=== PATIENT | male | born 1960 | race Caucasian/White ===

== ENCOUNTER 2017-08-25 05:58 | Inpatient (IN) | payer OTHER ==
[2017-08-25] MEDS ORDERED: ceFAZolin SODIUM 1 GM VIAL IV PRN (06:00)
[2017-08-25] MEDS ORDERED: RINGER'S SOLUTION,LACTATED 1,000 ML IV PRN (06:00)
[2017-08-25] MEDS ORDERED: MORPHINE SULFATE 15 MG TABLET.SA PO PRN (06:00)
[2017-08-25] MEDS ORDERED: ROPIVACAINE HCL/PF 100 MG, EPINEPHrine 0.2 MG, KETOROLAC TROMETHAMINE 30 MG in NORMAL S... IJ PRN (06:00)
[2017-08-25] MEDS ORDERED: TRANEXAMIC ACID 1,000 MG in NORMAL SALINE 100 ML IV PRN (06:00)
[2017-08-25] MEDS ORDERED: RINGER'S SOLUTION,LACTATED 1,000 ML IV ONE ×2 (07:40→08:15)
[2017-08-25] MEDS ORDERED: MAGNESIUM HYDROXIDE 30 ML UDC PO PRN (09:44)
[2017-08-25] MEDS ORDERED: HYDROmorphone HCL 1 MG/ML DISP.SYRIN IV PRN (09:44)
[2017-08-25] MEDS ORDERED: ZOLPIDEM TARTRATE 5 MG TABLET PO PRN (09:44)
[2017-08-25] MEDS ORDERED: MAG HYDROX/ALUMINUM HYD/SIMETH 30 ML UDC PO PRN (09:44)
[2017-08-25] MEDS ORDERED: diphenhydrAMINE HCL 50 MG/ML VIAL IV PRN (09:44)
[2017-08-25] MEDS ORDERED: PROMETHAZINE HCL 5 MG in DEXTROSE 5 % IN WATER 50 ML IV PRN ×2 (09:44)
[2017-08-25] MEDS ORDERED: ACETAMINOPHEN 500 MG TABLET PO PRN (09:44)
[2017-08-25] MEDS ORDERED: oxyCODONE HCL/ACETAMINOPHEN 1 TAB TABLET PO PRN (09:44)
[2017-08-25] MEDS ORDERED: ONDANSETRON HCL/PF 2 MG/ML VIAL IV PRN (09:44)
[2017-08-25] MEDS ORDERED: TADALAFIL 20 MG TABLET PO PRN (09:46)
--- NOTE | 2017-08-25 09:48 | POSTOP NO ---
Date of Surgery: 08/25/17 Anesthesia: Spinal, regional, local Patient Tolerated the Procedure: Well Post Operative Diagnosis/Procedures: Component Assembler Supervisor: Wilfred Cid PA-C Post-operative Diagnosis: Left knee degenerative joint disease Finding: Above Procedure: Left total knee arthroplasty Estimated Blood Loss: Minimal Specimens: Bone for disposal
--- NOTE | 2017-08-25 09:49 | OR ---
Operative Report - Dictated Report Narrative: Date: 08/25/2017 Preoperative diagnosis: Left Knee degenerative joint disease. Postoperative diagnosis: Left Knee degenerative joint disease. Procedure: Left Total knee arthroplasty. Surgeon: Ronnie Villa M.D. Director Athletic: Wilfred Cid PA-C Anesthesia: Spinal with regional block and local periarticular joint injection. Complications: None Specimens: Bone for disposal. Estimated blood loss: Minimal. Tourniquet time: 75 Minutes at 325 millimeters of mercury. Retained implants: Depuy Attune size 6 left lugged cemented posterior stabilized femoral component. Size 6 fixed-bearing cemented tibial platform. 6 by 6 millimeter posterior stabilized cross-linked tibial insert. 38 millimeter medialized patella button. Indications: Mr. Randle is a 56-year-old gentleman who has had long-standing left knee pain and arthrosis. This patient was followed in my clinic for period of time with significant complaints of left knee pain consistent with arthritic changes. He had failed conservative measures including, but not limited to, activity modification, passage of time, medications, and other conservative measures. Patient wished to proceed with surgical treatment. The risks, benefits, and alternatives were discussed in clinic. The risks of , blood clots, bleeding, infection, nerve/tendon blood vessel/ injury, malposition of components, intraoperative fracture, postoperative limited range of motion, persistent pain, failure of components, and need for additional procedures. Patient wished to proceed consent was obtained after answering all questions. Procedure: After marking the correct extremity on the floor, the patient was taken to the operating room. A timeout was performed. IV antibiotics consisting of Ancef were administered prior to the procedure. A regional followed by spinal anesthetic was induced by anesthesia, per my request, on the operative table with all bony prominences well-padded. Brewster catheter was placed, and a bump was placed under the operative side buttock. SCDs and DOROTHY hose were utilized on the nonoperative leg. A well-padded tourniquet was applied to the operative thigh. The operative leg was then pre-scrubbed with alcohol prepped, and draped in a standard sterile fashion. After exsanguinating the extremity with an Esmarch bandage, the tourniquet was inflated. After marking out the anterior knee for standard incision centered over the patella, the skin was incised and dissected down to the joint retinaculum. The joint retinaculum was marked out as well as the horizontal axis of the patella, and a standard medial parapatellar arthrotomy was then made. The most proximal aspect of the quadriceps tendon and the patella tendon insertion were protected from release. A partial synovectomy was performed as well as a resection of the infrapatellar fat pad. The distal femoral fat pad proximal to the trochlea was also resected using cautery. The soft tissues were elevated off the medial aspect of the proximal tibia using a Stevenson elevator ensuring that we did not transect the medial collateral ligament. Upon initial evaluation range of motion was approximately 0 degrees to 130 degrees of flexion. There were signs of advanced arthrosis in the medial and patellofemoral joint spaces. There were large marginal osteophytes which were removed with a rongeur. The knee was hyperflexed and the patella was tucked laterally. Protecting the surrounding soft tissues with Homans, an entry drill was placed down the femoral canal using Whitesides line for guidance into the entry point. The intramedullary femoral alignment holly was utilized in order to cut the distal femur in 5 degrees of valgus resecting 10 millimeters of bone. Next the distal femur was sized to a size 6. A posterior referencing guide was utilized to place the distal femoral cutting block in 3 degrees of external rotation. This was pinned into place. The rotation was confirmed both visually and based on anatomic landmarks. The 4 in 1 cutting jig of the appropriate size was utilized in order to make all bony cuts. The angle wing was used to ensure no notching. Retractors were utilized in order to protect surrounding soft tissues. This cut did not result in any excessive notching. We then cut the box centered over the distal femur. This allowed for resection of the anterior and posterior cruciate ligaments. I then turned my attention to the preparation of the tibia. Using an extra medullary tibial alignment holly, 3 millimeters of bone was resected off the medial articular surface. This was made perpendicular to the mechanical axis of the joint with the alignment holly centered over the ankle mortise. The alignment holly was checked and was noted to be parallel to the mechanical axis, centered over the medial one third of the tibial tubercle, paralleling the anterior surface of the tibia. We then turned our attention to the remaining meniscus and soft tissues. These were removed while protecting the surrounding ligaments and soft tissues. The marginal osteophytes off the anterior, posterior, medial, lateral aspects of the femur and tibia were removed. The tibia was sized out to a size 6. Next the tibia was drilled and punched in an externally rotated position. Next the trial femur and a series of tibial inserts were utilized in order to allow for full extension and maximal flexion. It was found that a 6 millimeter insert gave the best range of motion and stability at multiple flexion points as well as at full extension there was less than 2 mm of gapping both medially and laterally. There is minimal anterior translation with the knee at 90 degrees of flexion and no signs of being able to dislocate the knee. The patella was then prepared. The initial thickness was 24 millimeters. This was reamed down to 14 millimeters parallel to the anterior surface of the patella. It was sized out to a size 38 medialized patella button. This was then drilled and trialed. Without any medial restraint the patella tracked appropriately and did not sublux or dislocate. At this point, it was felt these were the appropriate sized implants, and all trials were removed. The standard periarticular joint injection consisting of ropivacaine, Toradol, and epinephrine were injected into the periarticular joint tissues. The bony surfaces were thoroughly irrigated with a pulsatile- suction saline irrigation device. A bone plug from the prior resected anterior chamfer cut was placed into the drill hole at the distal femur. The bony surfaces were then dried in preparation for placement of the implants. The cement was vacuum mixed per the director of recruitment's instructions. The cement was placed on the dry bony surfaces and posterior aspect of the implants. The implants were impacted into place, removing all extruded cement. At this point anesthesia administered tranexamic acid per protocol intravenously. The knee was placed in extension with axial loading with the trial insert while the cement cured. Once the cement cured, all remaining extruded cement was removed. The knee was placed through a range of motion with the trial insert to ensure appropriate range of motion and stability. Final range of motion was approximately 0 to 120 degrees. The knee was again thoroughly irrigated with pulsatile saline lavage. The final polyethylene insert was then impacted into place ensuring no retained soft tissues. The remaining periarticular joint injection was injected. A medium Hemovac drain was placed exiting superior laterally. The knee was then placed over a triangle and the arthrotomy was closed with interrupted #1 Vicryl after thoroughly irrigating the joint. The deep and subcutaneous tissues were closed with interrupted 0 and 3-0 Vicryl respectively. Skin was closed with a running subcutaneous 3-0 Monocryl and Prineo Dermabond dressing. 4 x 4's, Sof-Rol, and a full leg Jose wrap were applied. All sponge, needle, blade, and instrument counts were correct prior to closing the wounds. Postoperative condition: The patient was awoken and transferred to the postanesthesia care unit in stable condition. Plan is to be admitted to the inpatient medical/surgical floor postoperatively for 24 hours of IV antibiotics , physical therapy, occupational therapy, and medical comanagement. Patient will be weightbearing as tolerated with range of motion as tolerated. DVT prophylaxis will be with SCDs, DOROTHY hose, and pharmacological anticoagulation. Anticipated hospital stay is approximately 2-4 days.
[2017-08-25] MEDS: DEXTROSE 5%-LACTATED RINGERS 1,000 ML IV PRN ×2 (11:18→19:09)
[2017-08-25] MEDS: KETOROLAC TROMETHAMINE 15 MG/ML VIAL IV SCH ×3 (11:39→22:21)
[2017-08-25] MEDS: ceFAZolin SODIUM 1 GM in DEXTROSE 5 % IN WATER 100 ML IV SCH ×4 (14:12→20:10)
--- NOTE | 2017-08-25 16:21 | OR ---
Anesthesia Procedure Note - Anesthesia Procedure Note Narrative: Vital Signs - Last Taken Temp 36.4 C L 08/25/17 15:14 Pulse 56 L 08/25/17 15:14 Resp 16 08/25/17 15:14 BP 145/87 08/25/17 15:14 Pulse Ox 99 08/25/17 15:14 O2 Oxygen Delivery Method Room Air 08/25/17 16:18 ANESTHESIA PROCEDURE NOTE Date of procedure: 08/25/2017. Time of procedure: 45. Performed by: Alvaro Solano CRNA Crime Analyst: Abby Floyd RN . Preprocedure diagnosis: Left knee DJD. Need for postoperative analgesia status post left total knee arthroplasty. Post procedure diagnosis: Same. Procedure: Left femoral nerve block under ultrasound guidance Indications: Postoperative analgesia. Findings: Patient brought to operating room #4 placed in a supine position. Patient sedated. Patient's left femoral area was prepped with ChloraPrep. Ultrasound was used to identify left femoral nerve. A 22-gauge 2 inch Stimuplex regional block needle was inserted under ultrasound guidance, neurostimulator was also utilized. Proper needle placement confirmed. A total of 30 mL of 0.25% Marcaine with epinephrine 1 200,000 was injected around the femoral nerve. Adequate spread of local anesthetic was noted. Regional block needle was removed intact. EBL: Minimal. Fluids: N/A. Specimen: N/A. Post procedure condition: The patient tolerated the procedure well. No complications were noted. Thank you for this consultation Alvaro Solano CRNA
[2017-08-25] MEDS: MORPHINE SULFATE 15 MG TABLET.SA PO SCH (20:27)
[2017-08-25] MEDS ORDERED: SENNOSIDES/DOCUSATE SODIUM 1 TAB TABLET PO SCH (21:00)
[2017-08-25] MEDS ORDERED: SIMVASTATIN 20 MG TABLET PO SCH (21:00)
[2017-08-26] MEDS: ceFAZolin SODIUM 1 GM in DEXTROSE 5 % IN WATER 100 ML IV SCH ×2 (01:06)
[2017-08-26] MEDS: KETOROLAC TROMETHAMINE 15 MG/ML VIAL IV SCH ×4 (04:03→16:28)
[2017-08-26 06:04] LABS: Hematocrit 34.6 % (42.0-52.0); Hemoglobin 11.6 gm/dL (13.5-18.0); Mean Cell Volume 91.5 fl (78-100); Mean Corpuscular Hemoglobin 30.7 pg (27-31); Mean Corpuscular Hgb Conc 33.5 g/dl (32-36); Mean Platelet Volume 9.9 fl (6.0-9.5); Platelet Count 154 K/mm3 (150-450); Red Blood Count 3.78 M/mm3 (4.7-6.0); Red Cell Distribution Width 12.8 % (11.5-14.0); White Blood Count 5.6 K/mm3 (4.0-10.5)
[2017-08-26 06:15] LABS: Anion Gap 8.7 mmol/L (6.8-13.8); BUN/Creatinine Ratio 11.8 (9.0-21.6); Calcium * 8.4 mg/dL (7.9-10.9); Carbon Dioxide 30.2 mmol/L (24-32.6); Potassium 3.9 mmol/L (3.4-4.6)
[2017-08-26] MEDS ORDERED: NON-FORMULARY 1 DOSE DOSE (Omeprazole 20 MG) PO SCH (07:00)
--- NOTE | 2017-08-26 07:54 | PN ---
Subjective - Date and Time Seen Date: 08/26/17 Time: 07:52 Subjective Narrative: Subjective: Reports no concerns. Was able to get to the chair with therapy. Pain is well-controlled. Tolerating by mouth intake. Denies any nausea or vomiting. Denies calf pain. Slept well. Physical exam: Alert and oriented to person, place and time Left lower Extremity: Palpable dorsalis pedis pulse. Sensation grossly intact to light touch. Dressings clean and dry . able to flex and extend ankle and toes. No excessive drainage. Calf and thigh are soft and nontender. Assessment: Postop day 1 status post left total knee arthroplasty. Plan: Due to the need for pain control, post-operative limited mobility, protection of the surgical site and joint, monitoring of the wound, and the management of chronic medical conditions, he requires continued inpatient care. Continue with physical and occupational therapy weightbearing as tolerated. Continue with anticoagulation. 24 hours postoperative prophylactic antibiotics. Pain control with goal to rely on oral medications. Continue bowel regimen. Will need 6 weeks with walker or assitive device to protect joint while ambulating during the recovery process. Discharge planning. Discontinue drain and Brewster catheter. Repeat hemogram and BMP in a.m. in order to monitor for postoperative anemia and electrolyte imbalance. Objective - Vitals Vitals: Last Vital Signs Temp 37 C 08/26/17 07:46 Pulse 67 08/26/17 07:46 Resp 18 08/26/17 07:46 BP 147/78 08/26/17 07:46 Pulse Ox 98 08/26/17 07:46 - Abnormal Lab Findings Abnormal Lab Findings: Abnormal Lab Results 08/26/17 Range/Units 06:01 RBC 3.78 L (4.7-6.0) M/mm3 Hgb 11.6 L (13.5-18.0) gm/dL Hct 34.6 L (42.0-52.0) % MPV 9.9 H (6.0-9.5) fl Cauti Physician Documentation - Urinary Catheter Management Urethral (Brewster) Urethral Indwelling: Yes Reason for Continuing Indwelling Catheter: Surgical Procedure Date of Insertion: 08/25/17 Time of Insertion: 09:00 Assessment/Plan - Problems/Diagnosis (1) Status post total left knee replacement Problem: Acute (2) Anemia associated with acute blood loss Problem: Acute (3) Degenerative joint disease Problem: Chronic (4) GERD (gastroesophageal reflux disease) Problem: Chronic (5) Hyperlipidemia Problem: Chronic
[2017-08-26] MEDS ORDERED: ENOXAPARIN SODIUM 40 MG/0.4 ML SYRG SC SCH (08:45)
--- NOTE | 2017-08-26 08:49 | CONS ---
[facility] - General Date of Service: 08/26/17 Narrative: REASON FOR CONSULTATION: Medical Management. Juliocesar Randle, is a 56 year old , white male with PMH of Hyperlipidimia, GERD, Osteoarthritis who was referred to me for medical management. He is POD # 1 for LTKA. His BP has been running high since his postop. He does say he has some knee discomfort at the present time. The says though his BP has been running in the 140. - History of Present Illness Timing/Duration: 1/2 hour Severity: mild Allergies/Adverse Reactions: Allergies No Known Allergies Allergy (Verified 08/25/17 06:36) Home Medications: Home Medications Medication Instructions Recorded Last Taken Omeprazole [Prilosec] 20 mg PO DAILY 09/15/15 08/24/17 09:00 Simvastatin [Zocor] 20 mg PO DAILY 09/15/15 08/24/17 09:00 Tadalafil [Cialis] 10 mg PO DAILY PRN 07/30/17 Unknown - Patient's Past Medical History Patient History - Medical: Chronic Pain, GERD, Migraines Patient History - Cardiac/Respiratory: Hyperlipidemia Patient History - Cancer: No Hx of Cancer Patient History - Surgical Procedures: Colonoscopy, ENT, Orthopedic Patient History - Other: None - Family History Father Family History - Medical: No pertinent hx Family History - Cardiac/Respiratory: Hypertension, Hyperlipidemia, Myocardial Infarction Family History - Cancer: No pertinent family hx Grandfather-Maternal Family History - Medical: , Alcohol Abuse Family History - Cardiac/Respiratory: Myocardial Infarction Grandfather-Paternal Family History - Medical: Family History - Cardiac/Respiratory: COPD, Myocardial Infarction Grandmother-Maternal Family History - Medical: , Alcohol Abuse Family History - Cardiac/Respiratory: CVA/Stroke, Myocardial Infarction Grandmother-Paternal Family History - Medical: Family History - Cardiac/Respiratory: Hypertension Mother Family History - Medical: Alcohol Abuse, Liver Disease Family History - Cardiac/Respiratory: Hypertension, Hyperlipidemia, Myocardial Infarction Family History - Cancer: No pertinent family hx Sister Family History - Medical: No pertinent hx Family History - Cardiac/Respiratory: Hypertension, Hyperlipidemia Family History - Cancer: No pertinent family hx - Social History Living Situations: spouse Abuse History: No History of abuse Psych History: No pertinent hx Smoking Status: Former smoker Have you smoked in the past 12 months: No Do you dip or chew tobacco: Yes Patient requests Smoking Cessation Consult: No Initiate information on Smoking Cessation: Yes Alcohol Use: occasionally Drug Use: marijuana - Immunizations Immunizations Up to Date: Yes Procedures ENDO RECTUM POLYPECTOMY (01/17/12) ENDOSC POLYPECTOMY OF LG INTEST (01/17/12) EXCIS KNEE SEMILUN CARTL (08/01/09) REPLACE OF R KNEE JT WITH SYNTH SUB, CEMENT, OPEN APPROACH (09/25/15) Medications - Medications Current Medications: Current Medications Dextrose/Lactated Ringer's (Dextrose 5%-Lr) 1,000 mls @ 125 mls/hr IV .Q8H PRN PRN Reason: HYDRATION Stop: 09/24/17 09:45 Last Admin: 08/25/17 19:09 Dose: 125 mls/hr Ketorolac Tromethamine (Toradol) 15 mg IV Q6H [facility] Stop: 08/27/17 05:01 Last Admin: 08/26/17 04:03 Dose: 15 mg Morphine Sulfate (Ms Contin) 15 mg PO Q12H [facility] Stop: 09/24/17 21:01 Last Admin: 08/25/17 20:27 Dose: 15 mg Non-Formulary Medication (Omeprazole) 20 mg PO DAILY@0700 [facility] Stop: 09/25/17 07:01 Last Admin: 08/26/17 07:19 Dose: 20 mg Senna/Docusate Sodium (Senokot-S) 2 tab PO [facility] Stop: 09/24/17 21:01 Last Admin: 08/25/17 20:26 Dose: 2 tab Simvastatin (Zocor) 20 mg PO [facility] Stop: 09/24/17 21:01 Last Admin: 08/25/17 20:27 Dose: 20 mg Review of Systems - Review of Systems Generalized/Overall Review: Absent: Chills, Fever EENTM: Present: No Symptoms Reported Respiratory: Absent: Cough, Shortness of Breath, Orthopnea Cardiac: Absent: Chest Pain, Palpitations Abdominal: Absent: Nausea, Vomiting Genitourinary: Absent: Urgency, Frequency Musculoskeletal: Present: Joint Pain Physical Examination - Exam Vital Signs: Vital Signs - Last Taken Temp 37 C 08/26/17 08:29 Pulse 67 08/26/17 08:29 Resp 18 08/26/17 08:29 BP 147/78 08/26/17 08:29 Pulse Ox 98 08/26/17 08:29 O2 Oxygen Delivery Method Room Air Constitutional: Present: Alert, Oriented x3 ENT Exam: Present: hearing grossly normal Eye Exam: bilateral eye: normal inspection, PERRL, EOMI Neck: Present: supple Respiratory: Present: normal breath sounds, No rales, No wheezing Cardiovascular/Chest: Present: regular rate, rhythm, no JVD, no murmur Abdomen: Present: Normal bowel sounds, soft, nontender, nondistended Extremity: Present: no pedal edema, no calf tenderness, other - moves ankles and toes - Results and Findings: Lab/Microbiology results last 24 hrs: Abnormal/Pending Laboratory Last 24 HRS 08/26/17 06:01 RBC 3.78 L Hgb 11.6 L Hct 34.6 L MPV 9.9 H - Assessments/Findings (1) Elevated BP without diagnosis of hypertension Diagnosis(s): will monitor and start on low salt diet. His elevated BP could be due to anxiety /pain postoperatively vs new onset HTN. Problem: Acute (2) Status post total left knee replacement Diagnosis(s): continue with PT/OT and anticoagulation Problem: Acute (3) Status post total knee replacement, right Diagnosis(s): past history Problem: Chronic (4) Degenerative joint disease Problem: Chronic (5) GERD (gastroesophageal reflux disease) Diagnosis(s): continue with home medications Problem: Chronic (6) Hyperlipidemia Diagnosis(s): continue with home medications Problem: Chronic
[2017-08-26] MEDS: MORPHINE SULFATE 15 MG TABLET.SA PO SCH (08:51)
[2017-08-26 15:39] VITALS: BP 123/78
--- NOTE | 2017-08-26 17:17 | DS ---
(1) Status post total left knee replacement Problem: Acute (2) Anemia associated with acute blood loss Problem: Acute (3) Degenerative joint disease Problem: Chronic (4) GERD (gastroesophageal reflux disease) Problem: Chronic (5) Hyperlipidemia Problem: Chronic Description of Stay: Mr. Randle was admitted to the floor after undergoing left total knee arthroplasty. Tolerated this well. Was admitted to the floor postoperatively for 24 hours of IV antibiotics, pain control, medical comanagement, and occupational and physical therapy. OT and PT were consulted to assist with activities of daily living and ambulation. Was made weightbearing as tolerated with range of motion as tolerated. Pain was initially controlled with IV regimen. This was transitioned to oral once tolerating a by mouth intake. Was resumed on home diet and medications. Had a Brewster catheter inserted and the operating room which was discontinued on postoperative day 1. A drain was placed intraoperatively into the knee which was discontinued on postoperative day 1. Lovenox SCD and DOROTHY hose were utilized for DVT prophylaxis. Vital signs remained stable to the hospital course. Labs were obtained which showed a hemoglobin of 11.6 grams. BMP was reviewed and was stable. Physical examination throughout the hospital course showed an extremity that had sensation that was intact to light touch, palpable pulses, a benign wound, motor intact to the toes, ankle, and knee. Once an oral pain regimen was tolerated and physical therapy goals were met, it was felt that they were stable for discharge to home. Instructions: Continue with weightbearing as tolerated and range of motion as tolerated. It is okay to shower and get the wound wet as long as there is no drainage from the wound. Do not bathe or soak the wound. If there is any drainage from the wound keep the wound clean and dry and cover with dry gauze and tape. Change every 2-3 days as needed if there is any drainage. Cover wound while showering if there is any drainage. Continue with physical therapy. Resume home diet. Report any fever over 101.5 Fahrenheit, uncontrolled pain, increased drainage, foul odor of drainage, new or increased calf pain or shortness of breath, or any other significant complaints. A 325mg dialy aspirin will be started after finishing anticoagulation if not allergic. Continue with DOROTHY hose on the operative extremity until instructed otherwise. No driving until instructed otherwise. Follow up in approximately 10-14 days. Procedures Performed: see notes below List Procedures: Left total knee arthroplasty Discharge Disposition: Home self care Disposition: Home self-care Condition: Good Discharge Activity: Activity as tolerated, Weight bearing Discharge Diet: General/regular food Referrals: Eli Yost MD [Primary Care Provider] - Additional Patient Instructions (free text): Follow up with Dr. Villa 09/09 at 9:45. Prescriptions (Any new or edited meds): Enoxaparin Sodium [Lovenox] 40 mg SC Q24H #7 disp.syrin Morphine Sulfate [Ms Contin] 15 mg PO Q12H #20 tablet.sa oxyCODONE HCL/ACETAMINOPHEN [Percocet 5 MG/325 MG] 2 tab PO Q4H PRN #90 tablet PRN Reason: Moderate Pain Complete Home Medications List: Complete Home Medication List: Omeprazole [Prilosec] 20 mg PO DAILY 09/15/15 Simvastatin [Zocor] 20 mg PO DAILY 09/15/15 Tadalafil [Cialis] 10 mg PO DAILY PRN 07/30/17 Enoxaparin Sodium [Lovenox] 40 mg SC Q24H #7 disp.syrin 08/26/17 Morphine Sulfate [Ms Contin] 15 mg PO Q12H #20 tablet.sa 08/26/17 Sennosides/Docusate Sodium [Senokot-S] 2 tab PO HS tablet 08/26/17 oxyCODONE HCL/ACETAMINOPHEN [Percocet 5 MG/325 MG] 2 tab PO Q4H PRN #90 tablet 08/26/17 Amb Orders for Discharge: PT Evaluation and Treatment Facility: [facility], Location: Rehabilitation Services
== END 2017-08-26 17:56 | disposition home or self-care (01) | DRG 470 ==
LOC: MS 05:58
PROVIDERS: ADMIT Orthopaedic Surgery; ATTEND Orthopaedic Surgery
PROC: 0SRD0J9 Replacement of Left Knee Joint with Synthetic Substitute, Cemented, Open Approach (ICD-10-PCS; principal; 2017-08-25 08:00)
DX: M17.12 Unilateral primary osteoarthritis, left knee (principal); D62 Acute posthemorrhagic anemia; K21.9 Gastro-esophageal reflux disease without esophagitis; E78.5 Hyperlipidemia, unspecified
CPT/HCPCS: 27447; 36415; 73560; 80048; 85027; 97110; 97116; 97161; 97165; J2405